=== PATIENT | female | born 2000 | race Caucasian/White ===

== ENCOUNTER 2021-05-20 15:20 | Emergency (ER) | payer OTHER, SELFPAY ==
[2021-05-20 15:40] VITALS: BP 158/92; PULSE 95; RESP 18; TEMP 36.3; O2SAT 100
--- NOTE | 2021-05-20 15:46 | ECG_ITS ---
Measurements Intervals [place] Rate: 68 P: 55 IA: 137 QRS: 54 QRSD: 76 T: 55 QT: 416 QTc: 444 Interpretive Statements SINUS RHYTHM BASELINE ARTIFACT- I, II, AVR NORMAL ECG Electronically Signed On 05-20-2021 20:16:51 [employer] SPECIAL[employer] by Mike Venegas D.O.
[2021-05-20 16:25] LABS: Basophils Percent Auto 0.6 % (0.2-1.2); Eosinophils Percent Auto 0.2 % (0-4.4); Hematocrit 40.9 % (37.0-47.0); Hemoglobin 13.5 g/dL (12.0-15.0); Immature Granulocyte Absolute 0.01 K/mm3 (0.00-0.031); Immature Granulocyte Percent A 0.2 % (0-0.5); Lymphocytes Absolute Auto 1.91 K/mm3 (0.9-3.2); Lymphocytes Percent Auto 28.8 % (18.3-44.2); Mean Corpuscular Hemoglobin 29.9 pg (26-34); Mean Corpuscular Volume 90.7 fl (80-100); Mean Platelet Volume 10.2 fl (7.4-10.4); Monocytes Absolute Auto 0.5 K/mm3 (0.1-0.6); Monocytes Percent Auto 7.7 % (2.6-8.5); Neutrophils Absolute Auto 4.2 K/mm3 (1.3-6.7); Neutrophils Percent Auto 62.5 % (45.5-73.1); Platelet Count Result 291 k/mm3 (150-375); Red Blood Count 4.51 M/mm3 (4.2-5.4); Red Cell Distribution Width 12.5 % (11.5-14.5); White Blood Count 6.6 K/mm3 (4.5-10.0)
[2021-05-20 16:38] LABS: Anion Gap 12 mmol/L (8-16); Blood Urea Nitrogen 8 mg/dL (7-17); Carbon Dioxide 22 mmol/L (22-30); Chloride 101 mmol/L (98-107); Estimated CRCL calculation 91 ml/min; Estimated Glomerular Filt Rate > 60; Glucose 98 mg/dL (65-110); Potassium 3.7 mmol/L (3.4-5.0); Sodium 135 mmol/L (137-145)
[2021-05-20 19:14] VITALS: BP 125/70; PULSE 66
[2021-05-20 19:15] VITALS: BP 145/87; PULSE 105
[2021-05-20 19:16] VITALS: BP 133/91; PULSE 101
--- NOTE | 2021-05-20 19:32 | ED.GENADULT ---
HPI - General Adult General Chief complaint: Syncope Stated complaint: syncope Time Seen by Provider: 05/20/21 18:23 Source: patient and RN notes reviewed History of Present Illness HPI narrative: Patient is a 20 y/o female complaining complaining of moderate bilateral leg numbness and weakness starting around 12:00 noon today. She states that she was at sitting in class when this happened. There was no known alleviating or exacerbating factor. However, her symptoms resolved spontaneously. She has no weakness or numbness at this time. She felt light-headed, almost passed out, but did not pass out completely. She had symptoms similar to this intermittently for last 5 days and no definitive explanation has been found. Review of Systems Constitutional: Constitutional: Denies chills, Denies fever(s), Denies headache(s) and Reports weakness Eyes: Eyes: Denies blurry vision ENT: Denies headache(s) and Denies neck pain Cardiovascular: Cardiovascular: Denies chest pain and Denies dyspnea Respiratory: Respiratory: Denies cough and Denies dyspnea Gastrointestinal: Gastrointestinal: Denies abdominal pain, Denies diarrhea, Denies nausea and Denies vomiting Genitourinary: Genitourinary: Denies hematuria and Denies dysuria Musculoskeletal: Musculoskeletal: Denies back pain and Denies neck pain Neurologic: Reports as per HPI, Reports dizziness, Denies headache(s), Reports numbness and Reports weakness Exam Const: General: no acute distress and well developed Orientation/consciousness: oriented to person, oriented to place, oriented to time and patient oriented x3 HENMT: Head: normocephalic Ears: external ears normal General nose exam: Normal external nose present Eyes: General: appearance normal, both eyes and all related structures Conjunctivae: conjunctivae normal Neck: Neck: normal visual inspection and full ROM Chest: Chest palpation & inspection: normal inspection of the chest and no tenderness Resp: Effort & Inspection: normal respiratory effort Auscultation: clear to auscultation bilaterally Cardio: Rate: regular rate Rhythm: regular rhythm GI: GI Palp: No abdominal tenderness and Yes Soft to palpation Skin: General skin exam: normal color and turgor normal Neuro: General: oriented to person, oriented to place, oriented to time and patient oriented x3 Cranial nerves: Yes CN's II-XII intact bilaterally Cognition (Neuro): normal cognition Speech: normal speech Motor exam (neuro): 5/5 motor strength present throughout Sensory Exam: normal sensation Coordination: [id number]-fo-adpt test normal and [id number]-ed-[id number] test normal Extrem: General: normal to inspection, full ROM and no pedal edema Psych: Appearance: grossly normal Mental Status: mental status grossly normal Affect: normal affect Course Vital Signs Vital signs: Vital Signs Temperature 36.3 C L 05/20/21 15:40 Pulse Rate 95 05/20/21 15:40 Respiratory Rate 18 05/20/21 15:40 Blood Pressure 158/92 H 05/20/21 15:40 Pulse Oximetry 100 05/20/21 15:40 Temperature 36.3 C L 05/20/21 15:40 Pulse Rate 71 05/20/21 22:50 Respiratory Rate 14 05/20/21 22:50 Blood Pressure 118/77 05/20/21 22:50 Pulse Oximetry 100 05/20/21 22:50 Medical Decision Making Vital Signs Vital Signs: Vital Signs Temperature 36.3 C L 05/20/21 15:40 Pulse Rate 95 05/20/21 15:40 Respiratory Rate 18 05/20/21 15:40 Blood Pressure 158/92 H 05/20/21 15:40 Pulse Oximetry 100 05/20/21 15:40 Temperature 36.3 C L 05/20/21 15:40 Pulse Rate 71 05/20/21 22:50 Respiratory Rate 14 05/20/21 22:50 Blood Pressure 118/77 05/20/21 22:50 Pulse Oximetry 100 05/20/21 22:50 Lab Data Result diagrams: 05/20/21 16:16 05/20/21 16:16 Labs: Lab Results 05/20/21 05/20/21 05/20/21 Range/Units 16:16 16:16 21:34 WBC 6.6 (4.5-10.0) K/mm3 RBC 4.51 (4.2-5.4) M/mm3 Hgb 13.5 (12.0-15.0) g/dL Hct 40.9
[2021-05-20 21:48] LABS: Add Urine Microscopic? YES; Appearance Urine Cloudy (Clear); Bilirubin Urine Negative (Negative); Blood Urine Negative (Negative); Color Urine Yellow (Yellow); Glucose Urine UA Negative (Negative); Ketones Urine 1+ mg/dL (Negative); Leukocyte Esterase Ur Negative LEU/UL (Negative); Mucus Urine Rare /lpf; Nitrate Urine Negative (Negative); Protein Urine Negative (Negative); RBC Urine 0-2 /hpf (0-2); Specific Grav Ur 1.019 (1.001-1.035); Squamous Epithelial Cell Urine Few /hpf (Few); Urobilinogen Urine Negative mg/dL (<2.0); WBC Urine 0-3 /hpf
[2021-05-20 21:57] LABS: Pregnancy On Board Control Positive; Urine Pregnancy Test Negative
[2021-05-20 22:50] VITALS: BP 118/77; PULSE 71; RESP 14; O2SAT 100
== END 2021-05-20 22:45 | disposition home or self-care (01) ==
PROVIDERS: Emergency Medicine; Emergency Provider Emergency Medicine
DX: R53.1 Weakness (principal)
CPT/HCPCS: 36415; 80048; 81001; 81025; 85025; 93005; 99284

== ENCOUNTER 2022-09-02 17:06 | Emergency (ER) | payer OTHER, SELFPAY ==
[2022-09-02 17:15] VITALS: BP 135/90; PULSE 96; RESP 18; TEMP 36.8; O2SAT 100
--- NOTE | 2022-09-02 17:31 | ED.GENADULT ---
HPI - General Adult General Chief complaint: Psychiatric Symptoms Stated complaint: Hallucinations Time Seen by Provider: 09/02/22 17:17 Source: patient and family (Friend) Mode of arrival: ambulatory Limitations: no limitations History of Present Illness HPI narrative: Patient presents today with a 2.5 week history of visual hallucinations and dissociation. States she did not realize she was having hallucinations until today. States her hallucinations are coming in the form of text messages in her full that she did not realize were not real. She is also seeing moving objects in her peripheral vision. Patient also states she is having episodes of, ?not understanding where I am. and losing track of time. ? Patient has had episodes of each in the past and is being treated by a medical provider in her home in [place]. She did have a visit with this medical provider by telephone yesterday and was instructed to seek evaluation today. She is also scheduled to follow up with this medical provider tomorrow morning by telephone. She has failed treatment with all of the SSRIs due to adverse reactions, in is scheduled for transcranial magnetic stimulation treatment in 1 month when she returns back to [place]. She was recently taken off of Strattera and is not currently on any medications. She is currently staying with a friend in her family [place] in [facility]. Increased stress recently as she found out a few days ago that her grandmother has been put on hospice. Denies HI, SI Related Data Home Medications Medication Instructions Recorded Confirmed norethindrone (contraceptive) 0.35 0.35 mg PO DAILY 09/02/22 09/02/22 mg tablet Allergies Allergy/AdvReac Type Severity Reaction Status Date / Time ssri AdvReac Intermediate Insomnia Uncoded 09/02/22 17:38 Review of Systems Review of Systems: CONSTITUTIONAL: Denies body aches, fever, chills, or sweats. EYES: Denies visual changes, redness, or discharge. ENT: Denies rhinorrhea, congestion, sore throat, or otalgia. CARDIOVASCULAR: Denies chest pain, palpitations, or edema. RESPIRATORY: Denies cough or dyspnea. GASTROINTESTINAL: Denies abdominal pain, nausea, vomiting, or diarrhea. GENITOURINARY: Denies dysuria or hematuria. SKIN: Denies rash, itching, or wounds. MUSCULOSKELETAL: Denies back pain, joint pain, or myalgia. NEUROLOGIC: Denies headache, numbness, tingling, or weakness. PSYCH: Denies depression or anxiety.+ hallucinations, dissociation PMFSH Past Medical History Medical History (Updated 09/02/22 @ 17:40 by Debi Rojas, [employer], ) Depression Comments At time of signature, I have reviewed and agree with nursing past medical, surgical, social and family history unless otherwise noted. Please see nursing chart for further information. There is no relevant family history pertinent to the presenting complaint Exam Narrative: GENERAL: Well-appearing, well-nourished, and in no acute distress. HEAD: Normocephalic, atraumatic. EYES: EOMI. No redness or drainage. Conjunctivae normal. ENT: Mucous membranes pink and moist. NECK: Normal AROM. CHEST: No respiratory distress. EXTREMITIES: Normal range of motion. No edema. SKIN: Warm, dry, no rash. Capillary refill normal. Normal skin turgor. NEURO: No focal deficits. Alert and oriented x3. Gait steady. PSYCH: Normal affect. Well spoken. Answers all questions appropriately. Course Course Level of Care: Express Care Visit Vital Signs Vital signs: Vital Signs Temperature 98.2 F 09/02/22 17:15 Pulse Rate 96 09/02/22 17:15 Respiratory Rate 18 09/02/22 17:15 Blood Pressure 135/90 09/02/22 17:15 Pulse Oximetry 100 09/02/22 17:15 Oxygen Delivery Room Air 09/02/22 17:15 Temperature 98.2 F 09/02/22 17:15 Pulse Rate 96 09/02/22 17:15 Respiratory Rate 18 09/02/22 17:15 Blood Pressure 135/90 09/02/22 17:15 Pulse Oximetry 100 09/02/22 17:15 Oxygen Delivery Room Air 09/02/22 1
== END 2022-09-02 17:33 | disposition home or self-care (01) ==
PROVIDERS: Emergency Provider Nurse Practitioner
DX: R44.1 Visual hallucinations (principal)
CPT/HCPCS: 99213; G0463